=== PATIENT | male | born 1950 | race Caucasian/White ===

== ENCOUNTER 2021-03-02 22:12 | Emergency (ER) | payer BC, OTHER ==
[~2021-03-02] VITALS: Ht 180.3 cm; Wt 88.5 kg
[2021-03-02] MEDS ORDERED: LIDOCAINE 2%,20 ML JEL.PF.APP MM ONE ×2 (22:30→22:39)
[2021-03-02 23:49] VITALS: BP 144/101
--- NOTE | 2021-03-03 00:04 | NUR ---
PT EDUCATED ON TRENT CARE AND USE. PT VERBILIZED UNDERSTANDING, GIVEN SUPPLIES AND LEG BAG PLACED. PT STEADY AMBULATING AND STATES FEELING A LOT BETTER.
[2021-03-03 00:06] LABS: MICROSCOPIC INDICATED
== END 2021-03-03 00:07 | disposition home or self-care (01) ==
LOC: ED 23:12
DX: N40.1 Benign prostatic hyperplasia with lower urinary tract symptoms (principal); R33.8 Other retention of urine
CPT/HCPCS: 51702; 81001; 99284